=== PATIENT | female | born 1985 | race Native Hawaiian/Other Pacific Islander ===

== ENCOUNTER → 2021-04-22 | Emergency (ER) | payer SELFPAY ==
[~2021-04-22] VITALS: Ht 177 cm; Wt 70.5 kg
[~2021-04-22] MED LIST: ACETAMINOPHEN 500 MG TAB (TYLENOL) ONE; AZIT500T PO; AZITHROMYCIN 250 MG TAB (ZITHROMAX) PO ONE; CEFD300C3 PO; IBUPROFEN 800 MG (MOTRIN) TAB PO ONE; LACTATED RINGERS 1,000 ML IV ONE; cefTRIAXone 1,000 MG in WATER (STERILE) FOR INJECTION 10 ML IV ONE
[2021-04-23 00:27] LABS: BASOPHILS % (AUTO) 0 % (0-10); EOSINOPHILS % (AUTO) 0 % (0-10); HEMATOCRIT 42 % (35-52); HEMOGLOBIN 13.9 g/dL (11.5-16.0); LYMPHOCYTES # (AUTO) 1.6 10^3/uL (1.0-4.0); LYMPHOCYTES % (AUTO) 38 % (12-44); MEAN CORPUSCULAR HEMOGLOBIN 27 pg (25-34); MEAN CORPUSCULAR HGB CONC 34 g/dL (32-36); MEAN CORPUSCULAR VOLUME 80 fL (80-99); MEAN PLATELET VOLUME 10.8 fL (9.0-12.2); MONOCYTES # (AUTO) 0.2 10^3/uL (0.0-1.0); MONOCYTES % (AUTO) 5 % (0-12); NEUTROPHILS # (AUTO) 2.4 10^3/uL (1.8-7.8); NEUTROPHILS % (AUTO) 57 % (42-75); PLATELET COUNT 184 10^3/uL (130-400); WHITE BLOOD COUNT 4.3 10^3/uL (4.3-11.0)
[2021-04-23 00:33] LABS: ALBUMIN 3.7 GM/DL (3.2-4.5); CHLORIDE 100 MMOL/L (98-107); POTASSIUM 3.4 MMOL/L (3.6-5.0); SODIUM 135 MMOL/L (135-145)
[2021-04-23 00:35] LABS: CALCIUM 8.7 MG/DL (8.5-10.1)
[2021-04-23 00:36] LABS: GLUCOSE 318 MG/DL (70-105); TOTAL PROTEIN 7.7 GM/DL (6.4-8.2)
[2021-04-23 00:37] LABS: BILIRUBIN,TOTAL 0.5 MG/DL (0.1-1.0); CARBON DIOXIDE 21 MMOL/L (21-32)
[2021-04-23 00:39] LABS: ALKALINE PHOSPHATASE 71 U/L (40-136); CREATININE SERUM 0.72 MG/DL (0.60-1.30); GFR ESTIMATED 93
[2021-04-23 00:41] LABS: BUN/CREATININE RATIO 8
[2021-04-23 00:42] LABS: ALANINE AMINOTRANSFERASE 53 U/L (0-55); MAGNESIUM 1.8 MG/DL (1.6-2.4)
[2021-04-23 00:54] LABS: LYMPHOCYTES % (MANUAL) 23 %; MONOCYTES % (MANUAL) 3 %; NEUTROPHILS % (MANUAL) 74 %
--- NOTE | 2021-04-23 00:54 | ED Cough/URI ---
General Chief Complaint: Cough/Cold/Flu Symptoms Stated Complaint: CP,SOB Nursing Triage Note: PT PRESENTS TO THE ED C/O ONE WEEK OF MIDSTERNAL CHEST PAIN THAT ONSET AFTER RECENT TRAVEL THROUGH [place]. PT DENIES COUGH, VERBALIZES ALTERATIONS IN SENSE OF TASTE AND SMELL. DENIES NVD. 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) Exam Limitations: language barrier History of Present Illness Date Seen by Provider: Apr 22, 2021 Time Seen by Provider: 23:48 Initial Comments PT ARRIVES VIA POV WITH MULTIPLE PEOPLE PT STATES SHE HAS BEEN SICK FOR 1 WEEK C/O MID/UPPER CHEST PAIN X 1 WEEK C/O COUGH C/O LOSS OF TASTE AND SMELL C/O SUBJECTIVE FEVER NO SHORTNESS OF BREATH NO HEADACHE NO BODY ACHES NO NAUSEA/VOMITING/DIARRHEA STATES SHE IS EATING AND DRINKING NORMALLY VOIDING NORMALLY HAS NOT SOUGHT CARE UNTIL TONIGHT SYMPTOMS NO DIFFERENT TONIGHT HAS NOT TAKEN ANYTHING FOR SYMPTOMS PT HAS NOT HAD COVID-19 VACCINE DENIES SICK CONTACTS, BUT PT IS HERE WITH MULTIPLE FAMILY MEMBERS STATES SHE LIVES IN [place], [place], AND HAS BEEN HERE FOR THE LAST 2 WEEKS VISITING 'S FAMILY. DENIES TO ME THAT SHE HAS BEEN TRAVELING ANYWHERE EXCEPT FROM [place], [place] TO [place], [place] ADMITS TO HIGH BLOOD PRESSURE, BUT DENIES ANY OTHER CHRONIC MEDICAL PROBLEMS LMP--UNKNOWN. NO CONTROL Allergies and Home Medications Allergies Coded Allergies: No Known Drug Allergies (Unverified , 04/23/21) Home Medications Azithromycin 500 Mg Tablet, 500 MG PO DAILY Prescribed by: BARBARA SEVILLA on 04/23/21141 Cefdinir 300 Mg Capsule, 300 MG PO BID Prescribed by: BARBARA SEVILLA on 04/23/21141 Patient Home Medication List Home Medication List Reviewed: Yes Review of Systems Review of Systems Constitutional: see HPI, fever EENTM: see HPI, nose congestion Respiratory: see HPI, cough Cardiovascular: see HPI, chest pain Gastrointestinal: no symptoms reported; No abdominal pain, No constipation, No diarrhea, No loss of appetite, No nausea, No vomiting Past Avnxnsa-Lkxats-Olvyzv Hx Patient Social History Tobacco Use?: No Smokeless Tobacco Frequency: Never a User Use of E-Cig and/or Vaping Jerman: Never a User Substance use?: No Alcohol Use?: No Immunizations Up To Date Influenza Vaccine Up-to-Date: No; Not Current Past Medical History Surgeries: No Respiratory: No Cardiac: Yes Hypertension Neurological: No Reproductive Disorders: No Genitourinary: No Gastrointestinal: No Musculoskeletal: No Endocrine: No HEENT: No Cancer: No Psychosocial: No Integumentary: No Blood Disorders: No Physical Exam Vital Signs - First Documented 04/22/21 23:40 Temp 38.4 Pulse 105 Resp 18 B/P (MAP) 101/67 (78) Pulse Ox 93 O2 Delivery Room Air Capillary Refill : Less Than 3 Seconds Height: '" Weight: lbs. oz. 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, no motor/sensory deficits, alert, oriented x 3 Skin: normal color (PT IS FROM [facility]), warm/dry; No rash Progress/Results/Core Measures Suspected Sepsis SIRS Temperature: Pulse: 105 Respiratory Rate: 18 Laboratory Tests 04/23/21 00:05: White Blood Count 4.3 Blood Pressure 101 /67 Mean: 78 Laboratory Tests 04/23/21 00:05: Creatinine 0.72, Platelet Count 184, Total Bilirubin 0.5 Results/Orders Lab Results Laboratory Tests Test 04/22/21 23:45 04/23/21 00:05 04/23/21 01:08 Range/Units Influenza Type A (RT-PCR) Not Detected Not Detecte Influenza Type B (RT-PCR) Not Detected Not Detecte SARS-CoV-2 RNA (RT-PCR) Detected H Not Detecte White Blood Count 4.3 4.3-11.0 10^3/uL Red Blood Count 5.19 H 3.80-5.11 10^6/uL Hemoglobin 13.9 11.5-16.0 g/dL Hematocrit 42 35-52 % Mean Corpuscular Volume 80 80-99 fL Mean Corpuscular Hemoglobin 27 25-34 pg Mean Corpuscular Hemoglobin Concent 34 32-36 g/dL Red Cell Distribution Width 13.2 10.0-14.5 % Platelet Count 184 130-400 10^3/uL Mean Platelet Volume 10.8 9.0-12.2 fL Immature Granulocyte % (Auto) 0 % Neutrophils (%) (Auto) 57 42-75 % Lymphocytes (%) (Auto) 38 12-44 % Monocytes (%) (Auto) 5 0-12 % Eosinophils (%) (Auto) 0 0-10 % Basophils (%) (Auto) 0 0-10 % Neutrophils # (Auto) 2.4 1.8-7.8 10^3/uL Lymphocytes # (Auto) 1.6 1.0-4.0 10^3/uL Monocytes # (Auto) 0.2 0.0-1.0 10^3/uL Eosinophils # (Auto) 0.0 0.0-0.3 10^3/uL Basophils # (Auto) 0.0 0.0-0.1 10^3/uL Immature Granulocyte # (Auto) 0.0 0.0-0.1 10^3/uL Neutrophils % (Manual) 74 % Lymphocytes % (Manual) 23 % Monocytes % (Manual) 3 % Hiltons Cells SLIGHT Blood Morphology Comment NA Erythrocyte Sedimentation Rate 46 H 0-20 MM/HR Sodium Level 135 135-145 MMOL/L Potassium Level 3.4 L 3.6-5.0 MMOL/L Chloride Level 100 98-107 MMOL/L Carbon Dioxide Level 21 21-32 MMOL/L Anion Gap 14 5-14 MMOL/L Blood Urea Nitrogen 6 L 7-18 MG/DL Creatinine 0.72 0.60-1.30 MG/DL Estimat Glomerular Filtration Rate 93 BUN/Creatinine Ratio 8 Glucose Level 318 H 70-105 MG/DL Calcium Level 8.7 8.5-10.1 MG/DL Corrected Calcium 8.9 8.5-10.1 MG/DL Magnesium Level 1.8 1.6-2.4 MG/DL Total Bilirubin 0.5 0.1-1.0 MG/DL Aspartate Amino Transf (AST/SGOT) 48 H 5-34 U/L Alanine Aminotransferase (ALT/SGPT) 53 0-55 U/L Alkaline Phosphatase 71 40-136 U/L Lactate Dehydrogenase 457 H 125-220 U/L Troponin I < 0.028 <0.028 NG/ML C-Reactive Protein High Sensitivity 2.19 H 0.00-0.50 MG/DL B-Type Natriuretic Peptide < 10.0 <100.0 PG/ML Total Protein 7.7 6.4-8.2 GM/DL Albumin 3.7 3.2-4.5 GM/DL Procalcitonin 0.06 <0.10 NG/ML Serum Test, Qualitative NEGATIVE NEGATIVE Urine Test NEGATIVE NEGATIVE My Orders Orders - BARBARA SEVILLA DO Cbc With Automated Diff (04/22/21 23:48) Comprehensive Metabolic Panel (04/22/21 23:48) Procalcitonin (Pct) (04/22/21 23:48) Hs C Reactive Protein (04/22/21 23:48) Erythrocyte Sedimentation Rate (04/22/21 23:48) LDH (04/22/21 23:48) Ekg Tracing (04/22/21 23:48) Hcg,Qualitative Urine (04/22/21 23:48) Covid 19 Inhouse Test (04/22/21 23:48) Influenza A And B By Pcr (04/22/21 23:48) BNP (04/22/21 23:48) Magnesium (04/22/21 23:48) Troponin I (04/22/21 23:48) Chest 1 View, Ap/Pa Only (04/23/21 00:01) Acetaminophen Tablet (Tylenol Tablet) (04/23/21 00:11) Ibuprofen Tablet (Motrin Tablet) (04/23/21 00:11) Lactated Ringers (Lr 1000 Ml Iv Solution (04/23/21 00:11) Manual Differential (04/23/21 00:05) Hcg,Qualitative Serum (04/23/21 00:50) Ceftriaxone (Rocephin) (04/23/21 01:45) Azithromycin Tablet (Zithromax Tablet) (04/23/21 01:45) Medications Given in ED Current Medications Medications Dose Ordered Sig/Marsha Route Start Time Stop Time Status Last Admin Dose Admin Acetaminophen 500 mg STK-MED ONCE .ROUTE 04/23/21 00:11 04/23/21 00:14 DC 04/23/21 00:15 500 MG Azithromycin 500 mg ONCE ONCE PO 04/23/21 01:45 04/23/21 01:46 DC 04/23/21 01:59 500 MG Ceftriaxone Sodium 1000 mg/ Sterile Water 10 ml @ 200 mls/hr ONCE ONCE IV 04/23/21 01:45 04/23/21 01:47 DC 04/23/21 01:59 200 MLS/HR Ibuprofen 800 mg STK-MED ONCE PO 04/23/21 00:11 04/23/21 00:14 DC 04/23/21 00:16 800 MG Lactated Ringer's 1,000 ml @ ud STK-MED ONCE IV 04/23/21 00:11 04/23/21 00:14 DC 04/23/21 00:16 1,000 MLS/HR Vital Signs/I&O 04/22/21 04/22/21 04/23/21 04/23/21 23:40 23:45 00:15 00:16 Temp 38.4 38.4 38.4 Pulse 105 Resp 18 B/P (MAP) 101/67 (78) Pulse Ox 93 O2 Delivery Room Air Room Air 04/23/21 02:04 Temp 37.6 Pulse 88 Resp 18 B/P (MAP) 113/63 (78) Pulse Ox 94 O2 Delivery Room Air Capillary Refill : Less Than 3 Seconds Blood Pressure Mean: 78 Progress Note : Progress Note PLACED IN ISOLATION ROOM PPE WORN AT ALL TIMES COVID-19 TESTING PERFORMED GIVEN IV FLUIDS AND TYLENOL AND MOTRIN --TEMP AND HEART RATE DOWN AT DISMISSAL GIVEN ROCEPHIN AND ZITHROMAX NO HYPOXIA NO COUGH NO DYSPNEA NO COMPLAINTS OF CHEST PAIN AT DISMISSAL STRESSED THE IMPORTANCE OF QUARANTINE FOR HERSELF AND ALL HOUSEHOLD MEMBERS AND CLOSE CONTACTS ALSO STRESSED THE IMPORTANCE OF FOLLOW UP WITH HER DR AT HOME, WHEN SHE IS OUT OF QUARANTINE, FOR FURTHER EVALUATION OF ELEVATED BLOOD SUGAR ECG Initial ECG Impression Date: Apr 22, 2021 Initial ECG Impression Time: 23:59 Initial ECG Rate: 103 Initial ECG Rhythm: S.Tach Initial ECG Comparisson: No Previous ECG Available Diagnostic Imaging Comments CXR--RLL>LLL INFILTRATE, PENDING RADIOLOGIST REVIEW Reviewed: Reviewed by Me Departure Impression Primary Impression: COVID-19 virus infection Additional Impressions: Pneumonia due to COVID-19 virus Hyperglycemia Disposition: 01 HOME, SELF-CARE Condition: Stable Departure-Patient Inst. Decision time for Depature: 01:40 Referrals: NO,LOCAL PHYSICIAN (PCP/Family) Primary Care Physician Patient Instructions: Atypical Pneumonia (Mycoplasma and Viral) (DC), COVID-19 ED, Preventing the Spread of an Infectious Disease, High Blood Sugar, Adult ED Add. Discharge Instructions: TYLENOL 1 GRAM/ MOTRIN 800 MG 4 TIMES A DAY NEEDED FOR PAIN OR FEVER LOTS OF CLEAR LIQUIDS--WATER, BROTH, JELLO, GATORADE OVER THE COUNTER ROBITUSSIN DM FOR COUGH QUARANTINE YOURSELF AND ALL YOUR FAMILY MEMBERS AND CLOSE CONTACTS FOR THE NEXT 2 WEEKS--NO ONE ENTERS OR LEAVES THE HOUSE FOR THE NEXT 2 WEEKS YOU ARE VERY CONTAGIOUS AND WILL OR HAVE ALREADY SPREAD IT TO OTHER PEOPLE RETURN TO ER IF YOUR SYMPTOMS WORSEN FOLLOW UP WITH A DR IN YOUR HOME TOWN, IN 2-3 WEEKS, AFTER YOU HAVE RECOVERED FROM COVID, TO FOLLOW UP ON HIGH BLOOD SUGAR All discharge instructions reviewed with patient and/or family. Voiced understanding. Scripts Azithromycin (Zithromax) 500 Mg Tablet 500 MG PO DAILY for 5 Days, #5 TAB Prov: BARBARA SEVILLA DO 04/23/21 Cefdinir (Cefdinir) 300 Mg Capsule 300 MG PO BID, #20 CAP Prov: BARBARA SEVILLA DO 04/23/21 BARBARA SEVILLA DO Apr 23, 2021 00:54
[2021-04-23 00:55] LABS: BURR CELLS SLIGHT; ERYTHROCYTE SEDIMENTATION RATE 46 MM/HR (0-20)
[2021-04-23 02:04] VITALS: BP 113/63
--- NOTE | 2021-04-23 07:06 | Diagnostic Imaging Report ---
EXAMINATION: Chest 1 view HISTORY: CP, COUGH COMPARISON: None available. FINDINGS: Heart size and pulmonary vasculature are normal. Patchy interstitial and airspace opacities greatest within the mid and lower lungs. No pneumothorax. The osseous structures are intact. IMPRESSION: 1. Patchy interstitial and airspace opacities within the mid and lower lungs concerning for multifocal pneumonia or atypical infection. Differential consideration could include pulmonary edema. Dictated by: Dictated on workstation # [id number]
== END ==
LOC: ER 23:35
DX: U07.1 COVID-19 (principal); J12.82 Pneumonia due to coronavirus disease 2019; R73.9 Hyperglycemia, unspecified; I10 Essential (primary) hypertension
CPT/HCPCS: 36415; 71045; 85027; 87636; 93005